=== PATIENT | female | born 1970 | race African-American/Black ===

== ENCOUNTER 2018-04-27 07:31 | Emergency (ER) | payer OTHER ==
[~2018-04-27] VITALS: Ht 170.2 cm; Wt 137.0 kg
[2018-04-27 07:45] VITALS: BP 112/82
== END 2018-04-27 11:52 | disposition left against medical advice (07) ==
LOC: ER 07:31
DX: Z53.21 Procedure and treatment not carried out due to patient leaving prior to being seen by health care provider (principal)

== ENCOUNTER 2018-12-09 23:30 | Emergency (ER) | payer OTHER | END 2018-12-10 01:08 | disposition left against medical advice (07) | LOC: ER 23:30 | DX: Z53.21 Procedure and treatment not carried out due to patient leaving prior to being seen by health care provider (principal); R07.9 Chest pain, unspecified | CPT/HCPCS: 93005 ==

== ENCOUNTER 2018-12-10 08:42 | Emergency (ER) | payer OTHER ==
[~2018-12-10] VITALS: Ht 170.2 cm; Wt 139.0 kg
[2018-12-10] MEDS ORDERED: KETOROLAC 30MG/ML VIAL IV STA (10:58)
[2018-12-10] MEDS ORDERED: SODIUM CHLORIDE 0.9% 1,000 ML IV ONE (10:58)
[2018-12-10 11:36] LABS: CHLORIDE 108 mEq/L (98-107)
[2018-12-10 11:41] LABS: PARTIAL THROMBOPLASTIN TIME 26.6 sec (23.4-31.0); PROTHROMBIN TIME 9.8 sec (9.1-11.1)
[2018-12-10 11:50] LABS: BASOPHILS % 1.2 % (0.0-2.0); EOSINOPHILS % 2.5 % (0.0-5.0); HEMATOCRIT. 40.2 % (36.0-48.0); HEMOGLOBIN. 13.7 g/dL (12.0-16.0); LYMPHOCYTES % 36.3 % (20.0-50.0); MEAN CORPUSCULAR HEMOGLOBIN 32.6 pg (28.0-32.0); MEAN CORPUSCULAR VOLUME 95.8 fL (81.0-99.0); MONOCYTES % 7.5 % (2.0-8.0); NEUTROPHILS % 52.5 % (40.0-76.0); PLATELET 237 x1000/uL (130-400); RED CELL DISTRIBUTION WIDTH 13.9 % (11.6-14.6)
[2018-12-10 11:51] LABS: HCG SCREEN NEGATIVE
[2018-12-10 12:59] LABS: *BARBITURATES SCREEN URINE NEGATIVE (NEGATIVE); *BENZODIAZEPINES SCREEN URINE NEGATIVE (NEGATIVE); METHADONE URINE SCREEN NEGATIVE (NEGATIVE); PHENCYCLIDINE URINE SCREEN NEGATIVE (NEGATIVE)
[2018-12-10 13:01] LABS: OPIATES URINE SCREEN NEGATIVE (NEGATIVE)
[2018-12-10 13:03] LABS: CANNABINOID URINE SCREEN PRESUMTIVE POSITIVE (NEGATIVE)
[2018-12-10 13:07] LABS: *COCAINE SCREEN URINE NEGATIVE (NEGATIVE)
[2018-12-10 13:08] LABS: *AMPHETAMINES SCREEN URINE NEGATIVE (NEGATIVE)
[2018-12-10 14:08] VITALS: BP 106/57
== END 2018-12-10 16:33 | disposition home or self-care (01) ==
LOC: ER 08:57
DX: R07.89 Other chest pain (principal); M54.12 Radiculopathy, cervical region; I10 Essential (primary) hypertension
CPT/HCPCS: 36415; 71045; 72040; 80053; 80305; 81025; 83880; 84484; 84703; 85025; 85610; 85730; 93005; 96374; 99284; J1885; J7030

== ENCOUNTER 2019-07-14 10:15 | Inpatient (IN) | payer OTHER ==
[~2019-07-14] VITALS: Ht 170.2 cm; Wt 123.4 kg
[2019-07-14] MEDS ORDERED: MORPHINE SULFATE 4 MG/ML CPJ (NOT FOR IM USE) IV STA (10:58)
[2019-07-14] MEDS ORDERED: ONDANSETRON HCL 4MG/2ML INJ IV STA (10:58)
[2019-07-14] MEDS ORDERED: NITROGLYCERIN OINT 1GM/INCH UDPKT TD ONE (11:00)
[2019-07-14] MEDS ORDERED: ASPIRIN 81MG TABLET PO ONE (11:00)
[2019-07-14 11:17] LABS: BASOPHILS % 1.1 % (0.0-2.0); EOSINOPHILS % 3.3 % (0.0-5.0); HEMATOCRIT. 39.7 % (36.0-48.0); HEMOGLOBIN. 13.6 g/dL (12.0-16.0); LYMPHOCYTES % 33.3 % (20.0-50.0); MEAN CORPUSCULAR HEMOGLOBIN 33.1 pg (28.0-32.0); MEAN CORPUSCULAR VOLUME 96.8 fL (81.0-99.0); MONOCYTES % 8.2 % (2.0-8.0); NEUTROPHILS % 54.1 % (40.0-76.0); PLATELET 219 x1000/uL (130-400); RED CELL DISTRIBUTION WIDTH 14.1 % (11.6-14.6)
[2019-07-14 11:24] LABS: CHLORIDE 107 mEq/L (98-107)
[2019-07-14 11:28] LABS: HCG SCREEN NEGATIVE
[2019-07-14] MEDS ORDERED: HYDROCODONE/ACETAMINOPHEN 5/325MG TABLET PO PRN (12:45)
[2019-07-14] MEDS ORDERED: LORAZEPAM 2MG/ML CPJ IV PRN (12:45)
[2019-07-14] MEDS ORDERED: MAGNESIUM/ALUMINUM HYDROXIDE/SIMETHICONE 30ML UDC PO PRN (12:45)
[2019-07-14] MEDS ORDERED: ONDANSETRON HCL 4MG/2ML INJ IV PRN (12:45)
[2019-07-14] MEDS ORDERED: GUAIFENESIN 200MG/10ML SUGAR FREE UDC PO PRN (12:45)
[2019-07-14] MEDS ORDERED: DIPHENHYDRAMINE 50MG/ML VIAL IV PRN (12:45)
[2019-07-14] MEDS ORDERED: ACETAMINOPHEN 325MG TABLET PO PRN (12:45)
[2019-07-14] MEDS ORDERED: IPRATROPIUM/ALBUTEROL 0.5-3(2.5)MG/3ML NEB NEB PRN (12:45)
[2019-07-14] MEDS ORDERED: DOCUSATE SODIUM 100MG CAPSULE PO PRN (12:45)
[2019-07-14] MEDS ORDERED: MORPHINE SULFATE 2 MG/ML CPJ (NOT FOR IM USE) IV PRN (12:45)
[2019-07-14] MEDS ORDERED: NA PHOS,M-B/NA PHOS,DI-BA ENEMA 118ML PR PRN (12:45)
[2019-07-14] MEDS ORDERED: CLONIDINE 0.1MG TABLET PO PRN (12:45)
[2019-07-14 13:35] LABS: *AMPHETAMINES SCREEN URINE NEGATIVE (NEGATIVE)
[2019-07-14 13:36] LABS: *BENZODIAZEPINES SCREEN URINE NEGATIVE (NEGATIVE); *COCAINE SCREEN URINE NEGATIVE (NEGATIVE); METHADONE URINE SCREEN NEGATIVE (NEGATIVE); OPIATES URINE SCREEN PRESUMTIVE POSITIVE (NEGATIVE)
[2019-07-14 13:37] LABS: *BARBITURATES SCREEN URINE NEGATIVE (NEGATIVE); CANNABINOID URINE SCREEN PRESUMTIVE POSITIVE (NEGATIVE)
[2019-07-14 13:38] LABS: PHENCYCLIDINE URINE SCREEN NEGATIVE (NEGATIVE)
[2019-07-14 14:53] LABS: CHLORIDE 108 mEq/L (98-107)
[2019-07-14 15:20] VITALS: BP 136/74
[2019-07-14] MEDS ORDERED: OMEP40CA34 MT (17:07)
[2019-07-14] MEDS ORDERED: VIT1TABL5 MT (17:07)
[2019-07-14] MEDS ORDERED: RUTI1TAB2 PO (17:07)
[2019-07-14] MEDS ORDERED: ASPI-1160 MT (17:07)
[2019-07-14] MEDS ORDERED: AMLO10TA4 MT (17:07)
[2019-07-15] MEDS ORDERED: ASPIRIN 81MG EC TABLET PO SCH (09:00)
== END 2019-07-14 18:25 | disposition left against medical advice (07) | DRG 243 ==
LOC: ER 10:15 → 7WST 11:42 → ENRESERV 13:58
PROVIDERS: ADMIT Internal Medicine; ATTEND Internal Medicine
DX: K21.9 Gastro-esophageal reflux disease without esophagitis (principal); I10 Essential (primary) hypertension; Z79.899 Other long term (current) drug therapy; Z53.21 Procedure and treatment not carried out due to patient leaving prior to being seen by health care provider
CPT/HCPCS: 36415; 71045; 78582; 80048; 80305; 83880; 84484; 84703; 85379; 93005; 96374; 99285; A9558; J2270; J2405

== ENCOUNTER 2021-01-13 08:21 | Emergency (ER) | payer OTHER ==
[~2021-01-13] VITALS: Ht 170.2 cm; Wt 131.0 kg
[~2021-01-13 08:21] MED LIST: AMLO10TA4 MT; ASPI-1160 MT; OMEP40CA12 MT; RUTI1TAB2 PO; VIT1TABL5 MT
[2021-01-13] MEDS ORDERED: OXYCODONE HCL/ACETAMINOPHEN 5/325MG TABLET PO ONE (09:00)
[2021-01-13] MEDS ORDERED: KETOROLAC 60MG/2ML VIAL IM ONE (09:00)
[2021-01-13] MEDS ORDERED: IBUP-2029 PO (09:21)
[2021-01-13] MEDS ORDERED: T3 PO (09:21)
[2021-01-13 09:43] VITALS: BP 142/75
== END 2021-01-13 09:43 | disposition home or self-care (01) ==
LOC: ER 08:54
DX: M79.18 Myalgia, other site (principal)
CPT/HCPCS: 96372; 99283; J1885

== ENCOUNTER 2021-03-27 17:30 | Emergency (ER) | payer OTHER ==
[~2021-03-27] VITALS: Ht 170.2 cm; Wt 135.0 kg
[~2021-03-27 17:30] MED LIST changes: +IBUP-2029 PO; +T3 PO
[2021-03-27 18:09] VITALS: BP 151/97
[2021-03-27 19:47] LABS: BASOPHILS % 1.2 % (0.0-2.0); HEMATOCRIT. 39.2 % (36.0-48.0); HEMOGLOBIN. 13.2 g/dL (12.0-16.0); LYMPHOCYTES % 30.6 % (20.0-50.0); MEAN CORPUSCULAR HEMOGLOBIN 32.1 pg (28.0-32.0); MEAN CORPUSCULAR VOLUME 95.6 fL (81.0-99.0); MEAN PLATELET VOLUME 7.7 fl (7.4-10.4); MONOCYTES % 8.1 % (2.0-8.0); NEUTROPHILS % 58.1 % (40.0-76.0); PLATELET 250 x1000/uL (130-400); RED CELL DISTRIBUTION WIDTH 13.5 % (11.6-14.6)
[2021-03-27 19:53] LABS: CHLORIDE 108 mEq/L (98-107)
== END 2021-03-27 20:52 | disposition home or self-care (01) ==
LOC: ER 17:30
DX: R07.89 Other chest pain (principal); I16.0 Hypertensive urgency; I51.7 Cardiomegaly; J45.909 Unspecified asthma, uncomplicated; Z79.899 Other long term (current) drug therapy
CPT/HCPCS: 36415; 71045; 80053; 84484; 85025; 93005; 99285

== ENCOUNTER 2021-07-19 12:25 | Emergency (ER) | payer OTHER ==
[~2021-07-19] VITALS: Ht 170.2 cm; Wt 135.0 kg
[~2021-07-19 12:25] MED LIST changes: -OMEP40CA12 MT; +OMEP40CA20 MT
[2021-07-19] MEDS ORDERED: KETOROLAC 30MG/ML VIAL IM STA (14:24)
[2021-07-19 14:34] LABS: CLARITY URINE CLOUDY (CLEAR); COLOR URINE YELLOW (YELLOW); KETONES URINE TRACE (NEGATIVE); LEUKOCYTE ESTERASE URINE 2+ (NEGATIVE); NITRITE URINE NEGATIVE (NEGATIVE); OCCULT BLOOD URINE NEGATIVE (NEGATIVE); PROTEIN URINE NEGATIVE (NEGATIVE); SPECIFIC GRAVITY URINE 1.021 (1.005-1.030)
[2021-07-19] MEDS ORDERED: CEPHALEXIN 250MG CAPSULE PO ONE (15:15)
[2021-07-19 15:33] LABS: BASOPHILS % 0.7 % (0.0-2.0); EOSINOPHILS % 2.8 % (0.0-5.0); HEMATOCRIT. 38.7 % (36.0-48.0); HEMOGLOBIN. 13.3 g/dL (12.0-16.0); MEAN CORPUSCULAR HEMOGLOBIN 32.8 pg (28.0-32.0); MEAN CORPUSCULAR VOLUME 95.3 fL (81.0-99.0); MONOCYTES % 6.6 % (2.0-8.0); NEUTROPHILS % 50.9 % (40.0-76.0); PLATELET 265 x1000/uL (130-400); RED BLOOD CELL COUNT 4.06 mill/uL (4.2-5.4); RED CELL DISTRIBUTION WIDTH 13.7 % (11.6-14.6)
[2021-07-19 15:40] LABS: CHLORIDE 107 mEq/L (98-107)
[2021-07-19] MEDS ORDERED: CEPH500T MT (16:04)
[2021-07-19] MEDS ORDERED: IBUP-2029 MT (16:04)
[2021-07-19] MEDS ORDERED: METR500T MT (16:08)
[2021-07-19 16:34] VITALS: BP 137/76
== END 2021-07-19 16:35 | disposition home or self-care (01) ==
LOC: ER 12:25
DX: N39.0 Urinary tract infection, site not specified (principal); A59.9 Trichomoniasis, unspecified; I10 Essential (primary) hypertension; J45.909 Unspecified asthma, uncomplicated; Z79.899 Other long term (current) drug therapy
CPT/HCPCS: 36415; 74176; 80053; 81003; 81025; 85025; 96372; 99284; J1885

== ENCOUNTER 2023-10-14 07:34 | Emergency (ER) | payer OTHER ==
[~2023-10-14] VITALS: Ht 170.2 cm; Wt 132.0 kg
[~2023-10-14 07:34] MED LIST changes: +CEPH500T MT; +IBUP-2029 MT; +METR500T MT
[2023-10-14 07:39] VITALS: BP 139/79; RESP 17; TEMP 98.5; O2SAT 99
[2023-10-14 07:57] VITALS: PULSE 72
[2023-10-14] MEDS ORDERED: ACETAMINOPHEN 325MG TABLET PO ONE (08:00)
== END 2023-10-14 10:43 | disposition left against medical advice (07) ==
LOC: ER 07:34
DX: R10.9 Unspecified abdominal pain (principal); I10 Essential (primary) hypertension; J45.909 Unspecified asthma, uncomplicated; Z79.899 Other long term (current) drug therapy
CPT/HCPCS: 73502; 99283